=== PATIENT | female | born 1945 | race Caucasian/White ===

== ENCOUNTER 2021-02-05 14:35 | Emergency (ER) | payer OTHER, BC ==
--- OUTSIDE RECORDS SUMMARY | 2021-02-05 14:38 | XMS REPORT | Continuity of Care Document ---
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 Medications Ordered Filled Start Stop Current Ordering Indication Dosage Frequency Signature Comments Components Source Medication Medication Date Date Medication? Clinician (SIG) Name Name Methotrexat Methotrexat Yes Francisco TAKE [address] [facility] [address] e e Zheng TABLETS BY [facility] - MOUTH [facility] EVERY WEEK l Outpati ent Clinics Triamterene Triamterene Yes Francisco TAKE [address] [facility] -HCTZ -HCTZ Zheng CAPSULE BY [facility] - MOUTH ONCE [facility]oria DAILY l Outpati ent Clinics Maxzide Maxzide Yes Francisco not [facility] Zheng defined [facility] Aspir-81 Aspir-81 Yes Francisco not [facility] Zheng defined [facility] Ibuprofen Ibuprofen Yes Francisco TAKE [address] [facility] Zheng TABLET BY [facility] - MOUTH [facility] THREE l TIMES Outpati DAILY ent NEEDED Clinics Escitalopra Escitalopra Yes Francisco TAKE [address] [facility] m Oxalate m Oxalate Zheng TABLET BY [facility] - MOUTH ONCE [facility] DAILY l Outpati ent Clinics Mometasone Mometasone Yes Francisco USE [address] [facility] Furoate Furoate Zheng SPRAY(S) [facility] - IN EACH [facility] NOSTRIL l [facility] Amlodipine Amlodipine Yes Francisco TAKE [address] [facility] Besylate Besylate Zheng TABLET BY Deena kes - MOUTH ONCE [facility] DAILY l [facility] Metoprolol Metoprolol Yes Francisco TAKE 1 & [address] [facility] Succinate Succinate Zheng 2 (ONE & L ukes - ER ER ONE HALF) Memoria TABLETS BY l MOUTH ONCE Outpati DAILY ent Clinics Folic Acid Folic Acid Yes Francisco TAKE [address] [facility] Zheng TABLETS BY [facility] - MOUTH ONCE [facility] DAILY l [facility] Omeprazole Omeprazole Yes Francisco TAKE [address] [facility] Zheng CAPSULE BY [facility] - MOUTH [facility] TWICE l DAILY [facility] Claritin Claritin Yes Francisco not [facility] Zheng defined [facility] Magnesium Magnesium Yes Francisco not [facility] Zheng defined [facility] Clinics Hydroxychlo Hydroxychlo Yes Francisco TAKE [address] [facility] roquine roquine Zheng TABLET BY Luke s - Sulfate Sulfate MOUTH ONCE Mem [facility]ria DAILY l [facility] Benzonatate Benzonatate Yes Francisco TAKE [address] [facility] Zheng 2 CAPSULES [facility] - BY MOUTH Memoria THREE l TIMES Outpati DAILY ent NEEDED Clinics Levothyroxi Levothyroxi Yes Francisco TAKE [address] [facility] ne Sodium ne Sodium Zheng TABLET BY [facility] - MOUTH ONCE [facility] DAILY l [facility] Losartan Losartan Yes Francisco TAKE [address] Potassium Potassium Zheng TABLET BY [facility] - MOUTH ONCE Memoria DAILY FOR l 90 DAYS [facility] Procedures This patient has no known procedures. Encounters Start End Encounter Admission Attending Care Care Encounter Source Date/Time Date/Time Type Type Clinicians Facility Department ID 2019-12-15 2019-12-15 Outpatient Stalin Gantt [id number] [facility] [address] 08:00:00 08:00:00 t [facility] Results This patient has no known results.
--- NOTE | 2021-02-05 17:45 | RAD REPORT ---
EXAM DESCRIPTION: CT - CTHCSPWOC - 02/05/2021 5:28 pm CLINICAL HISTORY: Trauma, head and neck injury. PAIN COMPARISON: No comparisons TECHNIQUE: Axial 5 mm thick images of the head were obtained. Axial 2 mm thick images of the cervical spine were obtained with sagittal and coronal reconstruction images generated and reviewed. All CT scans are performed using dose optimization technique as appropriate and may include automated exposure control or mA/KV adjustment according to patient size. FINDINGS: CT HEAD WITHOUT CONTRAST: There is a 6 mm area of hyperdensity along the anterior falx suspicious for a small area of hemorrhag ic shear injury.Elsewhere, there is no significant hemorrhage, hydrocephalus or midline shift evident .No areas of brain edema or midline shift. The paranasal sinuses and mastoids are clear.Moderate right frontal scalp hematoma.The calvarium is i ntact. CT CERVICAL SPINE WITHOUT CONTRAST: No fracture or subluxation.Moderate multilevel cervical degenerative changes.No prevertebral soft tis sues swelling is identified. IMPRESSION: Small 6 mm area of hemorrhagic shear injury suspected along the anterior falx. No additi onal trauma related finding suspected. No midline shift seen. Moderate midcervical degenerative changes without acute fracture.
--- NOTE | 2021-02-05 17:49 | RAD REPORT ---
EXAM DESCRIPTION: CT - CTFB CLINICAL HISTORY: FACIAL PAIN COMPARISON: No comparisons TECHNIQUE: Axial 2 mm thick images of the face were obtained with sagittal and coronal reconstructio n images. All CT scans are performed using dose optimization technique as appropriate and may include automated exposure control or mA/KV adjustment according to patient size. FINDINGS: No acute facial bone fracture is seen.Moderate right frontal scalp hematoma.The mandible i s intact. The globes and orbital contents are grossly unremarkable.The paranasal sinuses and mastoids are clear . IMPRESSION: Negative for facial bone fracture.
[2021-02-05] MEDS ORDERED: NA CHLORIDE 0.9% 500 ML ONE (20:31)
[2021-02-05] MEDS ORDERED: LABETALOL 20 MG/4ML SYRINGE IV ONE (20:32)
--- NOTE | 2021-02-05 20:39 | ER ---
Nurse's Notes [facility] Name: Chitra Boyle Age: 75 yrs Sex: Female : 1945 Arrival Date: 02/05/2021 Time: 14:38 Bed 2 Private MD: Diagnosis: Fall on same level from slipping, tripping and stumbling;Intracranial injury-traumatic hemmorrhage Presentation: 02/05 14:47 Chief complaint: Patient states: Fell today around 1030 at home. Fell straight onto ll1 face. R eyebrow laceration <2 cm, bleeding controlled. No LOC. Bruising to right upper lip. No blood thinners, just aspirin. Swelling and bruising noted to R side of face. Coronavirus screen: Client denies travel out of the [place] in the last 14 days. At this time, the client does not indicate any symptoms associated with coronavirus-19. Ebola Screen: Patient denies travel to an Ebola-affected area in the 21 days before illness onset. Initial Sepsis Screen: Does the patient meet any 2 criteria? No. Patient's initial sepsis screen is negative. Does the patient have a suspected source of infection? No. Patient's initial sepsis screen is negative. Risk Assessment: Do you want to hurt yourself or someone else? Patient reports no desire to harm self or others. Onset of symptoms was February 05, 2021. 14:47 Method Of Arrival: Ambulatory ll1 14:47 Acuity: DANISH 3 ll1 Triage Assessment: 14:55 General: Appears uncomfortable, Behavior is calm, cooperative, appropriate for age. ll1 Pain: Complains of pain in R side of face Quality of pain is described as aching. Musculoskeletal: Circulation, motion, and sensation intact. Capillary refill < 3 seconds, Swelling present in R eyebrow area Reports pain in R facial area, R upper lip. Injury Description: Head injury Bruise Laceration. Historical: - Allergies: 14:54 No Known Allergies; ll1 - PMHx: 14:54 GERD; RA; Hypertension; seasonal allergies; ll1 - PSHx: 14:54 Hysterectomy; Appendectomy; Cholecystectomy; ll1 14:54 plate/screws L ankle; ll1 - Immunization history:: Flu vaccine is up to date. Client reports receiving the 1st dose of the Covid vaccine. - Social history:: Smoking status: Patient denies any tobacco usage or history of. Screenin:00 Abuse screen: Denies threats or abuse. Nutritional screening: No deficits noted. ea Tuberculosis screening: No symptoms or risk factors identified. Fall Risk None identified. Primary Survey: 20:00 NO uncontrolled hemorrhage observed. A: The patient is alert. Airway: patent. em Breathing/Chest: Respiratory pattern: regular. Circulation: Skin color: pink, Skin temperature: warm, dry. Disability Alert. Exposure/Environment: There is no evidence of uncontrolled external bleeding. Obvious injury(ies) are noted at this time: right side of face bruising and upper lip A warming method has been applied: A warm blanket has been provided to the patient. Assessment: 20:20 General: Appears in no apparent distress. comfortable, Behavior is calm, cooperative. em Pain: Denies pain. Neuro: Level of Consciousness is awake, alert, obeys commands, Oriented to person, place, time, situation, Denies dizziness, headache. Cardiovascular: Capillary refill < 3 seconds Patient's skin is warm and dry. Respiratory: Airway is patent Respiratory effort is even, unlabored, Respiratory pattern is regular, symmetrical. GI: Patient currently denies nausea, vomiting. Derm: Skin is intact, is healthy with good turgor, Skin is pink, warm \T\ dry. Bruising that is dark purple, on face and upper lip. Musculoskeletal: Capillary refill < 3 seconds, Range of motion: intact in all extremities. 21:48 Reassessment: Patient appears in no apparent distress at this time. Patient and/or em family updated on plan of care and expected duration. Pain level reassessed. Patient is alert, oriented x 3, equal unlabored respirations, skin warm/dry/pink. 23:00 Reassessment: report given to RAMON Epstein at [facility], pending EMS em transportation. Vital Signs: 14:47 BP 146 / 70; Pulse 65; Resp 17; Temp 97.4; Pulse Ox 95% ; Weight 99.79 kg; Height 5 ft. ll1 3 in. (160.02 cm); Pain 1/10; 20:39 BP 158 / 59; Pulse 71; Resp 18; Pulse Ox 100% on R/A; Pain 0/10; ea 21:45 BP 158 / 58; Pulse 72; Resp 18; Pulse Ox 96% on R/A; em 14:47 Body Mass Index 38.97 (99.79 kg, 160.02 cm) ll1 Abdulaziz Coma Score: 20:00 Eye Response: spontaneous(4). Verbal Response: oriented(5). Motor Response: obeys ea commands(6). Total: 15. 20:39 Eye Response: spontaneous(4). Verbal Response: oriented(5). Motor Response: obeys em commands(6). Total: 15. Trauma Score (Adult): 20:00 Eye Response: spontaneous(1); Verbal Response: oriented(1); Motor Response: obeys ea commands(2); Systolic BP: > 89 mm Hg(4); Respiratory Rate: 10 to 29 per min(4); [place] Score: 15; Trauma Score: 12 20:39 Eye Response: spontaneous(1); Verbal Response: oriented(1); Motor Response: obeys em commands(2); Systolic BP: > 89 mm Hg(4); Respiratory Rate: 10 to 29 per min(4); Abdulaziz Score: 15; Trauma Score: 12 ED Course: 14:38 Patient arrived in ED. ds1 14:51 Triage completed. ll1 14:54 Arm band placed on. ll1 16:42 Antonina Best FNP-C is PHCP. kb 16:42 Gomez Graves MD is Attending Physician. kb 17:27 CT Facial Bones W/O Con In Process Unspecified. EDMS 17:28 CT Head C Spine In Process Unspecified. EDMS 20:00 Yifan Erwin PA is PHCP. cp 20:00 Yifan Mojica MD is Attending Physician. cp 20:00 Patient has correct armband on for positive identification. Side rails up X2. Adult w/ ea patient. traffic agent on. Pulse ox on. NIBP on. 20:13 Pratik Lopez, RN is Primary Nurse. em 20:20 Patient maintains SpO2 saturation greater than 95% on room air. em 20:33 XRAY Chest (1 view) In Process Unspecified. EDMS 20:35 Inserted saline lock: 22 gauge in left wrist, using aseptic technique. ea 20:43 EKG done, by ED staff, reviewed by Yifan MARIA. ea 20:59 Inserted saline lock: 22 gauge in right antecubital area, using aseptic technique. ea 21:30 Initiated transfer at [facility] with Jonnie Claudio. After providing pt information, tt3 he put the call on hold to get their physician. Once he had their physician on the line, the call was transferred to CANDACE Colon, for consultation regarding the transfer request. 21:39 Jonnie Claudio gave admin approval. The accepting physician is Dr. Cheung. The pt is going tt3 to [facility] ER. Nurse to call report to . Face Sheet and MOT faxed to per Jonnie's request. 23:41 No provider procedures requiring assistance completed. Patient transferred, IV remains em in place. Administered Medications: 20:40 Drug: NS 0.9% 500 ml Route: IV; Rate: 500 ml/hr; Site: left wrist; ea 21:36 Follow up: IV Status: Completed infusion; IV Intake: 500ml ea 20:41 Drug: Trandate 20 mg Route: IVP; Site: left wrist; ea 21:36 Follow up: Response: No adverse reaction; Marked relief of symptoms; Blood sugar is ea lowered Intake: 21:36 IV: 500ml; Total: 500ml. ea Outcome: 20:38 ER care complete, transfer ordered by . marquita 23:41 Transferred by ground EMS to [facility], Transfer form completed. X-rays sent em w/ patient. 23:41 Condition: stable 23:41 Instructed on the need for transfer, Demonstrated understanding of instructions. 23:41 Patient's length of stay in the Emergency Department was greater than 2 hours. transfer em process took longer than 2 hoursPatient's length of stay extended due to 23:44 Patient left the ED. em Signatures: Dispatcher [employer] EDGA Antonina Best, PRODUCTION INSPECTORPratik Boss RN RN em Sanford, Demi ds1 Yifan Erwin PA PA cp Antunez, Elena, RN RN ea Lewis, Lynsay, RN RN ll1 Noble Jernigan tt3
--- NOTE | 2021-02-05 20:39 | EDPHYS ---
Physician Documentation [facility] Name: Chitra Boyle Age: 75 yrs Sex: Female : 1945 Arrival Date: 02/05/2021 Time: 14:38 Bed 2 Private MD: ASAD Physician Yifan Mojica HPI: 02/05 20:29 This 75 yrs old Female presents to ER via Ambulatory with complaints of Fall cp Injury. 20:29 Details of fall: The patient fell from an upright position, while walking, and struck a cp concrete surface. Onset: The symptoms/episode began/occurred this morning, at 10:00. Associated injuries: The patient sustained injury to the head, contusion, laceration, of the right lower forehead. Historical: - Allergies: 14:54 No Known Allergies; ll1 - PMHx: 14:54 GERD; RA; Hypertension; seasonal allergies; ll1 - PSHx: 14:54 Hysterectomy; Appendectomy; Cholecystectomy; ll1 14:54 plate/screws L ankle; ll1 - Immunization history:: Flu vaccine is up to date. Client reports receiving the 1st dose of the Covid vaccine. - Social history:: Smoking status: Patient denies any tobacco usage or history of. ROS: 20:30 Constitutional: Negative for body aches, chills, fever, poor PO intake. cp 20:30 Eyes: Negative for discharge, redness, vision loss. 20:30 Neck: Negative for pain with movement, pain at rest, stiffness. 20:30 Cardiovascular: Negative for chest pain, palpitations. 20:30 Respiratory: Negative for cough, shortness of breath, wheezing. 20:30 Abdomen/GI: Negative for abdominal pain, vomiting, diarrhea, constipation. 20:30 Neuro: Positive for headache, Negative for altered mental status, loss of consciousness, syncope, weakness. 20:30 All other systems are negative. Exam: 20:31 Constitutional: The patient appears in no acute distress, alert, awake, cp non-diaphoretic, non-toxic, well developed, well nourished. 20:31 Head/face: Noted is contusion, that is superficial, of the right periorbital area, ecchymosis, that is moderate, of the right periorbital area, swelling, that is mild, of the right periorbital area, tenderness, that is mild, of the right periorbital area. 20:31 Eyes: Pupils: equal, round, and reactive to light and accomodation, Extraocular movements: intact throughout, Conjunctiva: normal, no exudate, no injection, Sclera: no appreciated abnormality. 20:31 ENT: External ear(s): are unremarkable, Ear canal(s): are normal, clear, TM's: dullness, bilaterally, Mouth: Lips: right upper lip, swelling, ecchymosis, Oral mucosa: pink and intact, Posterior pharynx: Airway: no evidence of obstruction, patent. 20:31 Neck: C-spine: vertebral tenderness, is not appreciated, crepitus, is not appreciated, ROM/movement: is normal, is supple, without pain, no range of motions limitations. 20:31 Chest/axilla: Inspection: normal, Palpation: is normal, no crepitus, no tenderness. 20:31 Cardiovascular: Rate: normal, Rhythm: regular. 20:31 Respiratory: the patient does not display signs of respiratory distress, Respirations: normal, no use of accessory muscles, no retractions, labored breathing, is not present, Breath sounds: are clear throughout, no decreased breath sounds, no stridor, no wheezing. 20:31 Abdomen/GI: Inspection: abdomen appears normal, Palpation: abdomen is soft and non-tender, in all quadrants. 20:31 Back: pain, is absent, ROM is normal. 20:31 Neuro: Orientation: to person, place \T\ time. Mentation: is normal, Cerebellar function: Romberg testing is negative, Motor: moves all fours, strength is normal, Sensation: is normal. Vital Signs: 14:47 BP 146 / 70; Pulse 65; Resp 17; Temp 97.4; Pulse Ox 95% ; Weight 99.79 kg; Height 5 ft. ll1 3 in. (160.02 cm); Pain 1/10; 20:39 BP 158 / 59; Pulse 71; Resp 18; Pulse Ox 100% on R/A; Pain 0/10; ea 21:45 BP 158 / 58; Pulse 72; Resp 18; Pulse Ox 96% on R/A; em 14:47 Body Mass Index 38.97 (99.79 kg, 160.02 cm) ll1 [place] Coma Score: 20:00 Eye Response: spontaneous(4). Verbal Response: oriented(5). Motor Response: obeys ea commands(6). Total: 15. 20:39 Eye Response: spontaneous(4). Verbal Response: oriented(5). Motor Response: obeys em commands(6). Total: 15. Trauma Score (Adult): 20:00 Eye Response: spontaneous(1); Verbal Response: oriented(1); Motor Response: obeys ea commands(2); Systolic BP: > 89 mm Hg(4); Respiratory Rate: 10 to 29 per min(4); Abdulaziz Score: 15; Trauma Score: 12 20:39 Eye Response: spontaneous(1); Verbal Response: oriented(1); Motor Response: obeys em commands(2); Systolic BP: > 89 mm Hg(4); Respiratory Rate: 10 to 29 per min(4); [place] Score: 15; Trauma Score: 12 MDM: 20:01 Patient medically screened. [facility] 20:45 Data reviewed: vital signs, nurses notes, radiologic studies, CT scan. 20:45 Differential diagnosis: closed head injury, contusion, fracture, laceration, multiple cp trauma. Counseling: I had a detailed discussion with the patient and/or guardian regarding: the historical points, exam findings, and any diagnostic results supporting the discharge/admit diagnosis, radiology results, the need to transfer to another facility, [facility] does not immediately have the required specialist. 21:00 Physician consultation: was contacted at 21:00, regarding regarding transfer, to [facility]. patient's condition, accepting physician will be DR Cheung without consult. 02/05 20:10 Order name: Basic Metabolic Panel 02/05 20:10 Order name: CBC with Diff cp 02/05 20:10 Order name: LFT's cp 02/05 20:10 Order name: Magnesium cp 02/05 20:10 Order name: NT PRO-BNP cp 02/05 20:10 Order name: PT-INR; Complete Time: 21:37 cp 02/05 20:10 Order name: Troponin (emerg Dept Use Only) cp 02/05 20:10 Order name: Basic Metabolic Panel EDMS 02/05 20:11 Order name: CBC with Automated Diff; Complete Time: 21:37 EDMS 02/05 20:11 Order name: Liver (Hepatic) Function EDMS 02/05 20:11 Order name: Magnesium EDMS 02/05 20:11 Order name: NT PRO-BNP EDHI 02/05 20:11 Order name: Troponin (Emerg Dept Use Only) EDHI 02/05 16:41 Order name: CT Head C Spine; Complete Time: 17:47 kb 02/05 16:41 Order name: CT Facial Bones W/O Con; Complete Time: 20:00 kb 02/05 20:10 Order name: XRAY Chest (1 view); Complete Time: 21:37 cp 02/05 20:10 Order name: EKG; Complete Time: 20:11 cp 02/05 20:10 Order name: Cardiac monitoring; Complete Time: 21:38 cp 02/05 20:10 Order name: EKG - Nurse/Tech; Complete Time: 20:52 cp 02/05 20:10 Order name: IV Saline Lock; Complete Time: 20:52 cp 02/05 20:10 Order name: Labs collected and sent; Complete Time: 20:51 cp 02/05 20:10 Order name: O2 Per Protocol; Complete Time: 20:51 cp 02/05 20:10 Order name: O2 Sat Monitoring; Complete Time: 20:51 cp 02/05 22:12 Order name: SARS-COV-2 RT PCR EDMS EC:50 Rate is 65 beats/min. Rhythm is regular. MA interval is normal. QRS interval is cp prolonged at 104 msec. QT interval is normal. T waves are Inverted in lead aVR. Interpreted by me. Reviewed by me. Administered Medications: 20:40 Drug: NS 0.9% 500 ml Route: IV; Rate: 500 ml/hr; Site: left wrist; ea 21:36 Follow up: IV Status: Completed infusion; IV Intake: 500ml ea 20:41 Drug: Trandate 20 mg Route: IVP; Site: left wrist; ea 21:36 Follow up: Response: No adverse reaction; Marked relief of symptoms; Blood sugar is ea lowered Disposition: 21:00 Chart complete. 02/06 08:20 Co-signature as Attending Physician, Yifan Mojica MD I agree with the assessment and gertrude plan of care. Disposition: 02/05/21 20:38 Transfer ordered to [facility]. Diagnosis are Fall on same level from slipping, tripping and stumbling, Intracranial injury - traumatic hemmorrhage. - Reason for transfer: Higher level of care. - Accepting physician is DR Cheung. - Condition is Stable. - Problem is new. - Symptoms have improved. Signatures: Dispatcher [employer] [facility] Antonina Best, CONCRETE PRECAST MOULDER-C CONCRETE PRECAST MOULDER-CkYifan Ansari MD MD cha Munoz, Edgar, RN RN Yifan Smith, PA PA cp Nannette Wood, RN Osvaldo Chance ea, RN RN ll1 Corrections: (The following items were deleted from the chart) 02/05 21:31 20:37 CORONAVIRUS+MR.LAB.BRZ ordered. [facility] EDHI 21:39 20:38 02/05/2021 20:38 Transfer ordered to [facility]. Diagnosis is Fall cp on same level from slipping, tripping and stumbling; Intracranial injury - traumatic hemmorrhage. Reason for transfer: Higher level of care. Accepting physician is Doctor. Condition is Stable. Problem is new. Symptoms have improved. cp 23:44 21:39 02/05/2021 20:38 Transfer ordered to [facility]. Diagnosis is Fall em on same level from slipping, tripping and stumbling; Intracranial injury - traumatic hemmorrhage. Reason for transfer: Higher level of care. Accepting physician is DR Cheung. Condition is Stable. Problem is new. Symptoms have improved. cp
[2021-02-05 21:03] LABS: Absolute Lymphocytes (CBC) 1.6 K/uL (0.7-4.9); Basophils % 0.9 % (0-1.3); Hematocrit 39.1 % (36.0-45.0); Lymphocytes % 14.4 % (15.3-44.8); MPV 9.1 fL (7.6-11.3); RBC Red Blood Cell Count 4.34 M/uL (3.86-4.86)
[2021-02-05 21:10] LABS: Protime INR 1.06
--- NOTE | 2021-02-05 21:24 | RAD REPORT ---
EXAM DESCRIPTION: RAD - Chest Single View - 02/05/2021 8:36 pm CLINICAL HISTORY: fall Chest pain. COMPARISON: Chest Pa And Lat (2 Views) dated 01/06/2018 FINDINGS: Portable technique limits examination quality. The lungs are grossly clear. The heart is normal in size. No displaced fractures. IMPRESSION: No acute intrathoracic process suspected.
[2021-02-05 21:44] LABS: ALT/SGPT 35 U/L (12-78); AST/SGOT 24 U/L (15-37); Albumin 4.1 g/dL (3.4-5.0); Alkaline Phosphatase 82 U/L (45-117); BUN Blood Urea Nitrogen 11 mg/dL (7-18); Bicarbonate 32 mmol/L (21-32); Bilirubin Direct 0.2 mg/dL (0-0.2); Bilirubin Total 0.5 mg/dL (0.2-1.0); Glucose Level 124 mg/dL (74-106); Magnesium 1.9 mg/dL (1.8-2.4); NT PRO-BNP 679 pg/mL (<450); Protein, Total 7.2 g/dL (6.4-8.2); Sodium Level 127 mmol/L (136-145); Troponin (Emerg Dept Use Only) < 0.02 ng/mL (0.0-0.045)
[2021-02-05 23:49] VITALS: TEMP 97.4
[2021-02-05 23:51] VITALS: BP 158/58; O2SAT 96
--- NOTE | 2021-02-06 16:49 | EKG ---
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
== END 2021-02-05 23:44 | disposition short-term general hospital (02) ==
LOC: ER 14:35
DX: S06.340A Traumatic hemorrhage of right cerebrum without loss of consciousness, initial encounter (principal); W18.39XA Other fall on same level, initial encounter; Y93.01 Activity, walking, marching and hiking; Y92.9 Unspecified place or not applicable; Z20.822 Contact with and (suspected) exposure to COVID-19; I10 Essential (primary) hypertension
CPT/HCPCS: 36415; 70450; 70486; 71045; 72125; 76377; 80048; 80076; 83735; 83880; 84484; 85025; 85610; 93005; 96361; 96374; 99285; J7040; U0003

== ENCOUNTER 2024-11-27 01:26 | Emergency (ER) | payer OTHER, BC ==
[2024-11-27] MEDS ORDERED: KETOROLAC 30 MG/ML INJ ONE (02:24)
[2024-11-27] MEDS ORDERED: ONDANSETRON 4 MG/2 ML VIAL ONE (02:24)
[2024-11-27] MEDS ORDERED: FAMOTIDINE 20 MG/2 ML VIAL IV ONE (02:24)
[2024-11-27] MEDS ORDERED: NA CHLORIDE 0.9% 1,000 ML ONE (02:24)
[2024-11-27 02:26] LABS: Absolute Basophils 0.1 K/uL (0-0.5); Absolute Lymphocytes (CBC) 1.2 K/uL (0.7-4.9); Absolute Monocytes 1.6 K/uL (0.1-1.3); Absolute Neutrophil 7.6 K/uL (1.8-8.0); Basophils % 0.5 % (0-1.3); Eosinophils % 0.2 % (0-4.4); Hematocrit 46.5 % (36.0-45.0); Hemoglobin 15.8 g/dL (12.0-15.0); MCH 32.2 pg (27.0-35.0); MCV 94.7 fL (80-100); MPV 9.7 fL (7.6-11.3); Monocytes % 15.4 % (3.3-12.3); Neutrophils % 72.9 % (41.7-73.7); Nucleated Red Blood Cells % 0.1 % (0-0); Platelets 196 thou/uL (152-406); RBC Red Blood Cell Count 4.91 M/uL (3.86-4.86)
[2024-11-27 02:50] LABS: Albumin 3.5 g/dL (3.4-5.0); Anion Gap 11.9 mEq/L (5.0-15.0); Bilirubin Total 0.7 mg/dL (0.2-1.0); Globulin 3.5 g/dL (2.3-3.5); Potassium 2.9 mEq/L (3.5-5.1)
--- NOTE | 2024-11-27 04:22 | RAD REPORT ---
EXAM DESCRIPTION: Abdomen Pelvis W Contrast RadLex: CT ABDOMEN PELVIS WITH IV CONTRAST CLINICAL HISTORY: 79 years Female; ABD PAIN; IV ONLY Bed Name: 10 TECHNIQUE: CT of the abdomen and pelvis [with] intravenous contrast. All CT scans at this facility use dose modulation, iterative reconstruction, and/or weight based dosi ng when appropriate to reduce radiation dose to as low as reasonably achievable. COMPARISON: CT abdomen pelvis 03/04/2024 FINDINGS: Lower thorax: Bibasilar atelectasis. Abdomen: Stomach: Within normal limits Liver: Subcentimeter hypodensity in the left hepatic lobe, too small to characterize. No intrahepatic ductal distention. Gallbladder: Surgically absent. Pancreas: Within normal limits Spleen: Within normal limits Right kidney: No hydronephrosis. No focal lesion. Left kidney: No hydronephrosis. Subcentimeter hypodensities, too small to characterize. Adrenal glands: Within normal limits Vascular structures: Atherosclerosis of the abdominal aorta and major branches. Nodes: No lymphadenopathy by size criteria Pelvis: Small bowel: No significant distention. Fluid-filled contents. Appendix: Within normal limits Colon: No distention or acute pericolonic edema. Colonic diverticulosis. Fluid-filled contents. Peritoneum: No free intraperitoneal fluid or air. Bones: No acute bone findings. Bladder: Unremarkable. Reproductive organs: No acute findings. Soft tissues: Small fat-containing umbilical hernia. IMPRESSION: 1. Fluid-filled small and large bowel contents, can be seen in setting of diarrheal illness. 2. Colonic diverticulosis without diverticulitis. Electronically signed by: Lianna Sal MD 11/27/2024 04:06 AM [facility] Z9 Due to temporary technical issues with the [employer]ACS/[employer] reporting system, reports are being inder d by the in-house radiologist without review as a courtesy to ensure prompt reporting the interpreting radiologist is fully responsible for the content of the report. Transcribed Date/Time: 11/27/2024 4:21 AM
[2024-11-27 04:38] LABS: Specific Gravity 1.018 (1.005-1.030); Urine Bacteria <20 /HPF (<20); Urine Bilirubin NEGATIVE (Negative); Urine Blood Trace (Negative); Urine Clarity Extremely Turbid (Clear); Urine Color Light-Yellow (Yellow); Urine Crystals Unidentified Few /HPF (None Seen); Urine Culture Reflex Order REFLEXED; Urine Glucose NEGATIVE (Negative); Urine Ketones NEGATIVE (Negative); Urine Microscopic Reflex YN ORDER UMIC; Urine Mucus Slight /HPF (None Seen); Urine Nitrite NEGATIVE (Negative); Urine Protein NEGATIVE (Negative); Urine Urobilinogen Normal (Normal)
--- NOTE | 2024-11-27 05:25 | EDPHYS ---
Physician Documentation [facility] Name: Chitra Boyle Age: 79 yrs Sex: Female : 1945 Arrival Date: 11/27/2024 Time: 01:26 Bed 10 Private MD: ED Physician Santos Tinsley HPI: 11/27 05:23 This 79 yrs old Unknown Female presents to ER via EMS with complaints of nausea, sp4 vomiting, diarrhea for 3 days . 19:15 Presents with 3 days of nausea vomiting diarrhea including profuse watery diarrhea and sp4 near syncopal episode in the bathroom. Historical: - Allergies: 02:40 No Known Allergies; ha1 - PMHx: 02:40 GERD; Hypertension; RA; seasonal allergies; Atrial fibrillation; ha1 - Immunization history:: Adult Immunizations unknown. - Infectious Disease History:: Denies. - Social history:: Smoking status: Patient denies any tobacco usage or history of. - Family history:: not pertinent. ROS: 19:15 Constitutional: Negative for fever, chills, and weight loss, positive near syncopal sp4 episode, positive nausea vomiting and diarrhea. Positive generalized weakness 19:15 All other systems are negative, Exam: 19:15 Constitutional: This is a well developed, well nourished patient who is awake, alert, sp4 and in no acute distress. Head/Face: Normocephalic, atraumatic. Eyes: Pupils equal round and reactive to light, extra-ocular motions intact. Lids and lashes normal. Conjunctiva and sclera are not injected. Cornea within normal limits. Periorbital areas with no swelling, redness, or edema. ENT: Nares patent. No nasal discharge, no septal abnormalities noted. Tympanic membranes are normal and external auditory canals are clear. Oropharynx with no redness, swelling, or masses, exudates, or evidence of obstruction, uvula midline. Mucous membranes moist. Neck: Trachea midline, no thyromegaly or masses palpated, and no cervical lymphadenopathy. Supple, full range of motion without nuchal rigidity, or vertebral point tenderness. Chest/axilla: Normal chest wall appearance and motion. Nontender with no deformity. No lesions are appreciated. Cardiovascular: Regular rate and rhythm with a normal S1 and S2. No gallops, murmurs, or rubs. Normal PMI, no JVD. No pulse deficits. Respiratory: Lungs have equal breath sounds bilaterally, clear to auscultation and percussion. No rales, rhonchi or wheezes noted. No increased work of breathing, no retractions or nasal flaring. Abdomen/GI: Soft, with normal bowel sounds. No distension or tympany. No guarding or rebound. No evidence of tenderness throughout. Back: No spinal tenderness. No costovertebral tenderness. Skin: Warm, dry with normal turgor. Normal color with no rashes, no lesions, and no evidence of cellulitis. MS/ Extremity: Pulses equal, no cyanosis. Neurovascular intact. Full, normal range of motion. Neuro: Awake and alert, GCS 15, oriented to person, place, time, and situation. Cranial nerves II-XII grossly intact. Motor strength 5/5 in all extremities. Sensory grossly intact. Psych: Awake, alert, with orientation to person, place and time. Behavior, mood, and affect are within normal limits Vital Signs: 01:40 BP 117 / 70; Pulse 93; Resp 18 S; Temp 97.9(T); Pulse Ox 97% on R/A; Weight 74.84 kg; ha1 Height 5 ft. 3 in. ; 03:05 BP 123 / 51; Pulse 73; Resp 18; Temp 97.6(O); Pulse Ox 100% on R/A; ha1 06:00 BP 121 / 55; Pulse 77; Resp 17 S; Pulse Ox 96% on R/A; ha1 01:40 Body Mass Index 29.23 (74.84 kg, 160.02 cm) ha1 Abdulaziz Coma Score: 19:15 Eye Response: spontaneous(4). Motor Response: obeys commands(6). Verbal Response: sp4 oriented(5). Total: 15. MDM: 02:07 Medical Screening Exam initiated sp4 19:15 Differential diagnosis: Nonspecific abd pain, gastritis, viral gastroenteritis, sp4 gastroenteritis. Data reviewed: vital signs, nurses notes, old medical records, lab test result(s), radiologic studies, CT scan. Consideration of Admission/Observation Escalation of care including admission/observation considered. ED course: Patient has improved and was given p.o. potassium. Stable for discharge home with potassium supplementation.. 11/27 02:07 Order name: CBC with Diff; Complete Time: 05:16 sp4 11/27 02:07 Order name: CMP; Complete Time: 05:16 sp4 11/27 02:07 Order name: Lipase; Complete Time: 05:16 sp4 11/27 02:07 Order name: Urinalysis w/ reflexes; Complete Time: 05:16 sp4 11/27 02:07 Order name: Influenza Screen (a \T\ B); Complete Time: 05:16 sp4 11/27 04:42 Order name: Urine Culture EDUT 11/27 02:07 Order name: CT Abd/Pelvis - IV Contrast Only; Complete Time: 05:16 sp4 11/27 02:07 Order name: IV Saline Lock; Complete Time: 02:21 sp4 11/27 02:07 Order name: Labs collected and sent; Complete Time: 02:21 sp4 Administered Medications: 02:35 Drug: Famotidine IVP 20 mg IVP once; dilute with 10 mL 0.9% NaCl; give over 2 minutes cg Route: IVP; Site: right antecubital; 03:00 Follow up: Response: No adverse reaction; Marked relief of symptoms ha1 02:35 Drug: TORadol - Ketorolac IVP 15 mg IVP once Route: IVP; Site: right antecubital; cg 03:00 Follow up: Response: No adverse reaction; Marked relief of symptoms; Pain is decreased ha1 02:35 Drug: Ondansetron IVP 4 mg IVP once; over 2 minutes Route: IVP; Site: right antecubital;cg 03:00 Follow up: Response: No adverse reaction; Marked relief of symptoms ha1 02:35 Drug: NS 0.9% IV 1000 ml IV at 1 bolus Per protocol; to be given as a bolus over 60 cg minutes Route: IV; Rate: 1 bolus; Site: right antecubital; 05:00 Follow up: Response: No adverse reaction; IV Status: Completed infusion; IV Intake: ha1 1000ml 05:55 Drug: Potassium Chloride PO Liquid 40 mEq PO once Route: PO; ha1 06:14 Follow up: Response: No adverse reaction ha1 05:55 Drug: Diphenoxylate-Atropine PO 2 tabs PO once Route: PO; ha1 06:14 Follow up: Response: No adverse reaction; Marked relief of symptoms ha1 Disposition Summary: 11/27/24 05:24 Discharge Ordered Notes: Location: Home sp4 Problem: new sp4 Symptoms: have improved sp4 Condition: Stable sp4 Diagnosis - Acute Viral Gastroenteritis , Hypokalemia, Acute diarrheal illness sp4 Followup: sp4 - With: Private Physician - When: 7 - 10 days - Reason: Recheck today's complaints Discharge Instructions: - Discharge Summary Sheet sp4 - Viral Gastroenteritis, Adult, [id number] sp4 Forms: - Patient Portal Instructions sp4 Prescriptions: - Potassium Chloride 10 mEq Oral capsule, extended release - take 1 tablet ORAL route every 12 hours for 10 days; 20 tablet; Refills: 0, sp4 Product Selection Permitted - Lomotil 2.5-0.025 mg Oral tablet - take 1 tablet ORAL route every 6 hours As needed; 30 tablet; Refills: 0, sp4 Product Selection Permitted - ondansetron 8 mg Oral Tablet,disintegrating - take 1 tablet ORAL route every 8 hours PRN diarreha; 30 tablet; Refills: 0, sp4 Product Selection Permitted Signatures: Dispatcher [employer] Liat Crandall, RAMON NAVARRO Consuelo Floyd RN RN ha1 Santos Tinsley MD MD sp4 Corrections: (The following items were deleted from the chart) 02:07 02:07 CBC+H.LAB.BRZ ordered. EDMS EDMS 02:07 02:07 COMPREHENSIVE METABOLIC PANEL+C.LAB.BRZ ordered. EDMS EDMS 02:07 02:07 LIPASE+C.LAB.BRZ ordered. EDMS EDMS 02:07 02:07 Urinalysis+U.LAB.BRZ ordered. EDMS EDMS 02:07 02:07 Abdomen Pelvis W Con+CT.RAD.BRZ ordered. EDMS EDMS
--- NOTE | 2024-11-27 05:25 | ER ---
Nurse's Notes [facility] Name: Chitra Boyle Age: 79 yrs Sex: Female : 1945 Arrival Date: 11/27/2024 Time: 01: Bed 10 Private MD: Diagnosis: Acute Viral Gastroenteritis , Hypokalemia, Acute diarrheal illness Presentation: 11/27 01:40 Chief complaint: EMS states: 79 YEAR OLD FEMALE NAUSEA AND VOMITING FOR TWO DAYS, GOT ha1 UP TO GO TO BATHROOM AND ALMOST PASS OUT. AOX4 NOW. 01:40 Coronavirus screen: Client denies travel out of the [place] in the last 14 days. Ebola ha1 Screen: No symptoms or risks identified at this time. Initial Sepsis Screen: Does the patient meet any 2 criteria? No. Patient's initial sepsis screen is negative. Does the patient have a suspected source of infection? No. Patient's initial sepsis screen is negative. Risk Assessment: Do you want to hurt yourself or someone else? Patient reports no desire to harm self or others. Onset of symptoms was November 25, 2024. 01:40 Method Of Arrival: EMS: [facility] ha1 01:40 Acuity: DANISH 3 ha1 Triage Assessment: 01:40 General: Appears uncomfortable, Behavior is calm, cooperative. Pain: Complains of pain ha1 in abdomen Pain does not radiate. Pain currently is 5 out of 10 on a pain scale. Quality of pain is described as crampy. Neuro: Level of Consciousness is awake, alert, obeys commands, Oriented to person, place, time, situation. Cardiovascular: Capillary refill < 3 seconds Patient's skin is warm and dry. Respiratory: Airway is patent Respiratory effort is even, unlabored, Respiratory pattern is regular, symmetrical. GI: Abdomen is round non-distended, Reports nausea, vomiting. Historical: - Allergies: 02:40 No Known Allergies; ha1 - PMHx: 02:40 GERD; Hypertension; RA; seasonal allergies; Atrial fibrillation; ha1 - Immunization history:: Adult Immunizations unknown. - Infectious Disease History:: Denies. - Social history:: Smoking status: Patient denies any tobacco usage or history of. - Family history:: not pertinent. Screenin:40 [facility] ED Fall Risk Assessment (Adult) History of falling in the last 3 months, ha1 including since admission Yes- single mechanical fall (1 pt) Confusion or Disorientation No (0 pts) Intoxicated or Sedated No (0 pts) Impaired Gait Yes (1 pt) Mobility Assist Device Used Yes (1 pt) Altered Elimination Score/Fall Risk Level 3 or more points = High Risk Oriented to surroundings, Maintained a safe environment, Educated pt \T\ family on fall prevention, incl call for assistance when getting out of bed, Hourly rounding (assess needs \T\ fall precautionary measures) done. 02:41 Abuse screen: Denies threats or abuse. Denies injuries from another. Nutritional ha1 screening: No deficits noted. Tuberculosis screening: No symptoms or risk factors identified. Assessment: 01:40 Reassessment: see triage assessment. ha1 03:00 Reassessment: Patient and/or family updated on plan of care and expected duration. Pain ha1 level reassessed. Patient is alert, oriented x 3, equal unlabored respirations, skin warm/dry/pink. Patient states feeling better. Patient states symptoms have improved. 05:00 Reassessment: Patient and/or family updated on plan of care and expected duration. Pain ha1 level reassessed. Patient is alert, oriented x 3, equal unlabored respirations, skin warm/dry/pink. 06:00 Reassessment: Patient and/or family updated on plan of care and expected duration. Pain ha1 level reassessed. Patient is alert, oriented x 3, equal unlabored respirations, skin warm/dry/pink. Patient denies pain at this time. Patient states feeling better. Patient states symptoms have improved. Vital Signs: 01:40 BP 117 / 70; Pulse 93; Resp 18 S; Temp 97.9(T); Pulse Ox 97% on R/A; Weight 74.84 kg; ha1 Height 5 ft. 3 in. ; 03:05 BP 123 / 51; Pulse 73; Resp 18; Temp 97.6(O); Pulse Ox 100% on R/A; ha1 06:00 BP 121 / 55; Pulse 77; Resp 17 S; Pulse Ox 96% on R/A; ha1 01:40 Body Mass Index 29.23 (74.84 kg, 160.02 cm) [facility] Coma Score: 19:15 Eye Response: spontaneous(4). Motor Response: obeys commands(6). Verbal Response: sp4 oriented(5). Total: 15. ED Course: 01:40 Patient arrived in ED. kmf 01:40 Patient has correct armband on for positive identification. Bed in low position. Call ha1 light in reach. Side rails up X2. Adult w/ patient. 02:04 Door closed. Warm blanket given. kmf 02:05 Inserted saline lock: 20 gauge in right antecubital area, using aseptic technique. [facility] Blood collected. Flushed with 10 mL NS. 02:05 Initial lab(s) drawn, by me, held in ED. kmf 02:06 Santos Tinsley MD is Attending Physician. sp4 02:15 CBC with Diff Sent. kmf 02:15 CMP Sent. kmf 02:15 Lipase Sent. kmf 02:27 Initial lab(s) drawn, by me, sent to lab. kmf 02:30 Consuelo Floyd RN is Primary Nurse. ha1 02:40 Triage completed. ha1 03:20 CT Abd/Pelvis - IV Contrast Only In Process Unspecified. EDMS 06:16 Arm band placed on right wrist. ha1 06:16 No provider procedures requiring assistance completed. IV discontinued, intact, ha1 bleeding controlled, No redness/swelling at site. Pressure dressing applied. 06:18 Provided Education on: follow ups and low potassium . ha1 Administered Medications: 02:35 Drug: Famotidine IVP 20 mg IVP once; dilute with 10 mL 0.9% NaCl; give over 2 minutes cg Route: IVP; Site: right antecubital; 03:00 Follow up: Response: No adverse reaction; Marked relief of symptoms ha1 02:35 Drug: TORadol - Ketorolac IVP 15 mg IVP once Route: IVP; Site: right antecubital; cg 03:00 Follow up: Response: No adverse reaction; Marked relief of symptoms; Pain is decreased ha1 02:35 Drug: Ondansetron IVP 4 mg IVP once; over 2 minutes Route: IVP; Site: right antecubital;cg 03:00 Follow up: Response: No adverse reaction; Marked relief of symptoms ha1 02:35 Drug: NS 0.9% IV 1000 ml IV at 1 bolus Per protocol; to be given as a bolus over 60 cg minutes Route: IV; Rate: 1 bolus; Site: right antecubital; 05:00 Follow up: Response: No adverse reaction; IV Status: Completed infusion; IV Intake: ha1 1000ml 05:55 Drug: Potassium Chloride PO Liquid 40 mEq PO once Route: PO; ha1 06:14 Follow up: Response: No adverse reaction ha1 05:55 Drug: Diphenoxylate-Atropine PO 2 tabs PO once Route: PO; ha1 06:14 Follow up: Response: No adverse reaction; Marked relief of symptoms ha1 Medication: 06:17 VIS not applicable for this client. ha1 Intake: 05:00 IV: 1000ml; Total: 1000ml. ha1 Outcome: 05:24 Discharge ordered by . liseth 06:17 Discharged to home via wheelchair, with family, ha1 06:17 Condition: stable 06:17 Discharge instructions given to patient, family, Instructed on discharge instructions, follow up and referral plans. medication usage, Demonstrated understanding of instructions, follow-up care, medications, Prescriptions given X 3, 06:21 Patient left the ED. ha1 Signatures: Dispatcher [employer] Liat Crandall, Consuelo Duong RN, RN RN ha1 Santos Tinsley MD MD sp4 Kayli Velazquez [facility]
[2024-11-27] MEDS ORDERED: DIPHENOX/ATROP SULF 1 TAB PO ONE (05:53)
[2024-11-27] MEDS ORDERED: POTASSIUM CL SA 10 MEQ TAB PO ONE (05:53)
[2024-11-27 06:41] VITALS: TEMP 97.6
[2024-11-27 06:46] VITALS: BP 121/55; O2SAT 96
== END 2024-11-27 06:21 | disposition home or self-care (01) ==
LOC: ER 01:26
DX: A08.4 Viral intestinal infection, unspecified (principal); E87.6 Hypokalemia; I10 Essential (primary) hypertension; I48.91 Unspecified atrial fibrillation
CPT/HCPCS: 96361; 87088; 85025; 81001; 87086; 36415; 87077; 87186; 83690; 80053; 87804 ×2; 74177; 96375; 96374; 99284; Q9967; J2405; J7030